=== PATIENT | male | born 1975 | race Caucasian/White ===

== ENCOUNTER 2016-10-14 13:41 | Outpatient (CLI) | payer OTHER | END 2016-10-14 13:42 | disposition critical access hospital (66) | DX: M21.921 Unspecified acquired deformity of right upper arm (principal); M79.602 Pain in left arm; S00.81XA Abrasion of other part of head, initial encounter | CPT/HCPCS: A0425; A0427 ==

== ENCOUNTER 2016-10-14 13:50 | Emergency (ER) | payer OTHER ==
[2016-10-14] MEDS ORDERED: HYDROmorphone 1 MG/ML SYRINGE ONE ×4 (14:00→17:48)
[2016-10-14] MEDS: HYDROmorphone 1 MG/ML SYRINGE IVP STA ×4 (14:03→17:50)
[2016-10-14] MEDS: SODIUM CHLORIDE 0.9% 1,000 ML IV ONE (14:03)
[2016-10-14] MEDS ORDERED: MORPHINE 10 MG/ML VIAL ONE (14:40)
[2016-10-14] MEDS: MORPHINE 2 MG/ML SYRINGE IVP STA (15:00)
[2016-10-14] MEDS ORDERED: PROPOFOL 1000 MG/100 ML 100 ML IV ONE (15:58)
[2016-10-14] MEDS: PROPOFOL 200 MG/20 ML VIAL IVP STA (16:33)
== END 2016-10-14 18:02 | disposition short-term general hospital (02) ==
DX: S12.691A Other nondisplaced fracture of seventh cervical vertebra, initial encounter for closed fracture (principal); S52.121A Displaced fracture of head of right radius, initial encounter for closed fracture; S42.431A Displaced fracture (avulsion) of lateral epicondyle of right humerus, initial encounter for closed fracture; S42.401A Unspecified fracture of lower end of right humerus, initial encounter for closed fracture; S42.402A Unspecified fracture of lower end of left humerus, initial encounter for closed fracture; S09.90XA Unspecified injury of head, initial encounter; S00.81XA Abrasion of other part of head, initial encounter; W13.2XXA Fall from, out of or through roof, initial encounter; Y93.H3 Activity, building and construction; Y92.61 Building [any] under construction as the place of occurrence of the external cause; Y99.8 Other external cause status
CPT/HCPCS: 24600; 36415; 51702; 70450; 71260; 72125; 73060; 73070; 73080; 73090; 74177; 80053; 80320; 83690; 85025; 85610; 86850; 86900; 86901; 94770; 96361; 96374; 96375; 96376; 99284; 99291; J1170

== ENCOUNTER 2016-10-14 17:57 | Outpatient (CLI) | payer OTHER | END 2016-10-14 17:58 | disposition short-term general hospital (02) | DX: S42.402A Unspecified fracture of lower end of left humerus, initial encounter for closed fracture (principal); S53.105A Unspecified dislocation of left ulnohumeral joint, initial encounter; S53.104A Unspecified dislocation of right ulnohumeral joint, initial encounter; S12.630A Unspecified traumatic displaced spondylolisthesis of seventh cervical vertebra, initial encounter for closed fracture | CPT/HCPCS: A0170; A0425; A0426 ==

== ENCOUNTER 2019-03-19 08:00 | Outpatient (CLI) | payer OTHER ==
[2019-03-19 19:05] LABS: BASOPHILS % (AUTO) 0.9 %; EOSINOPHILS # (AUTO) 0.1 10^3/uL (0.0-0.7); EOSINOPHILS % (AUTO) 1.8 %; LYMPHOCYTES # (AUTO) 1.9 10^3/uL (1.5-3.5); LYMPHOCYTES % (AUTO) 41.7 %; MEAN CORPUSCULAR HEMOGLOBIN 29.8 pg (27.0-31.0); MEAN CORPUSCULAR VOLUME 87.5 fL (80.0-94.0); MEAN PLATELET VOLUME 11.5 fL (7.4-11.4); MONOCYTES # (AUTO) 0.5 10^3/uL (0.0-1.0); MONOCYTES % (AUTO) 11.7 %; NEUTROPHILS % (AUTO) 43.7 %; PLT - PLATELET COUNT 189 10^3/uL (130-450); RED BLOOD COUNT 5.37 10^6/uL (4.70-6.10); RED CELL DISTRIBUTION WIDTH 12.5 % (12.0-15.0); WHITE BLOOD COUNT 4.5 x10^3/uL (4.8-10.8)
[2019-03-19 19:37] LABS: ALBUMIN 4.4 g/dL (3.2-5.5); ALBUMIN/GLOBULIN RATIO 1.3 (1.0-2.2); ALKALINE PHOSPHATASE 52 IU/L (42-121); ALT ALANINE AMINOTRANSFERASE 64 IU/L (10-60); AST ASPARTATE AMINOTRANSFERASE 40 IU/L (10-42); BILIRUBIN,TOTAL 1.9 mg/dL (0.2-1.0); BUN - BLOOD UREA NITROGEN 19 mg/dL (6-20); CALCIUM 9.5 mg/dL (8.5-10.3); CARBON DIOXIDE - CO2 22 mmol/L (21-32); CHLORIDE 103 mmol/L (101-111); CHOL/HDL RATIO 6.4 (<5.0); CHOLESTEROL 229 mg/dL; CREATININE 0.9 mg/dL (0.6-1.2); GFR - MDRD 92 (>89); GLUCOSE 97 mg/dL (70-100); HDL CHOLESTEROL 36 mg/dL; LDL CHOLESTEROL,CALCULATED 170 mg/dL; LDL/HDL RATIO 4.7 (<3.6); SODIUM 139 mmol/L (135-145); TOTAL PROTEIN 7.7 g/dL (6.7-8.2); VLDL CHOLESTEROL 23 mg/dL
[2019-03-19 19:47] LABS: THYROID STIMULATING HORMONE 2.14 uIU/mL (0.34-5.60)
[2019-03-19 19:51] LABS: FREE T4 (FREE THYROXINE) 1.03 ng/dL (0.58-1.64)
== END 2019-03-19 23:59 | disposition home or self-care (01) ==
LOC: LAB.N 08:00
PROVIDERS: ATTEND Family Medicine
DX: E78.5 Hyperlipidemia, unspecified (principal)
CPT/HCPCS: 36415; 80050; 80061; 83721; 84439; 84481

== ENCOUNTER 2020-03-19 11:35 | Outpatient (CLI) | payer OTHER ==
--- NOTE | 2020-03-19 13:15 | XRAY Report ---
PROCEDURE: Knee 3 View LT INDICATIONS: LT KNEE EFFUSION TECHNIQUE: 3 views of the left knee(s) were acquired. COMPARISON: None. FINDINGS: Bones: No fractures or dislocations. No suspicious bony lesions. Soft tissues: Mild joint effusion. No suspicious soft tissue calcifications. IMPRESSION: Mild effusion. No visualized acute fracture or dislocation. However, occult injury canno t be excluded. Recommend short interval imaging follow-up in 7-10 days as clinically indicated for ad ditional evaluation. Reviewed by: Yancy Campuzano MD on 03/19/2020 1:14 PM PDT Approved by: Yancy Campuzano MD on 03/19/2020 1:14 PM PDT Station ID: [id number]
== END 2020-03-19 11:36 | disposition home or self-care (01) ==
LOC: DI 11:35
PROVIDERS: ATTEND Family Medicine
DX: M25.462 Effusion, left knee (principal)

== ENCOUNTER 2020-08-10 11:27 | Outpatient (CLI) | payer OTHER ==
--- NOTE | 2020-08-10 10:39 | XRAY Report ---
PROCEDURE: Knee 4 View BILAT INDICATIONS: L KNEE EFFUSION TECHNIQUE: 3 views of the right and left knee(s) were acquired. COMPARISON: 03/19/2020 FINDINGS: No fracture. Scattered subchondral sclerosis and spurring. Bilateral small joint effusions. Incident al 4 mm ossicle projecting adjacent to the inferior pole of the left patella, although the exact loca tion is technically indeterminate. There is spurring at the superior pole of the right patella. IMPRESSION: Minimal degenerative changes. Small bilateral joint effusions. If the patient's pain or other symptoms persist, consider further ev aluation with MRI. Reviewed by: Ananth Louie MD on 08/10/2020 10:38 AM PST Approved by: Ananth Louie MD on 08/10/2020 10:38 AM PST Station ID: [id number]
== END 2020-08-10 23:59 | disposition home or self-care (01) ==
LOC: DI.N 11:27
PROVIDERS: ATTEND Orthopaedic Surgery
DX: M25.462 Effusion, left knee (principal); M25.461 Effusion, right knee

== ENCOUNTER 2021-05-14 08:00 | Outpatient (CLI) | payer OTHER ==
[2021-05-14 18:09] LABS: EOSINOPHILS # (AUTO) 0.1 10^3/uL (0.0-0.7); EOSINOPHILS % (AUTO) 2.1 %; HCT - HEMATOCRIT 46.1 % (42.0-52.0); HGB - HEMOGLOBIN 15.5 g/dL (14.0-18.0); LYMPHOCYTES # (AUTO) 1.5 10^3/uL (1.5-3.5); LYMPHOCYTES % (AUTO) 35.6 %; MEAN CORPUSCULAR HEMOGLOBIN 29.8 pg (27.0-31.0); MEAN CORPUSCULAR HGB CONC 33.6 g/dL (32.0-36.0); MEAN CORPUSCULAR VOLUME 88.5 fL (80.0-94.0); MEAN PLATELET VOLUME 11.7 fL (7.4-11.4); MONOCYTES # (AUTO) 0.3 10^3/uL (0.0-1.0); MONOCYTES % (AUTO) 8.1 %; NEUTROPHILS # (AUTO) 2.2 10^3/uL (1.5-6.6); NEUTROPHILS % (AUTO) 52.7 %; PLT - PLATELET COUNT 192 10^3/uL (130-450); RED BLOOD COUNT 5.21 10^6/uL (4.70-6.10); RED CELL DISTRIBUTION WIDTH 12.1 % (12.0-15.0); WHITE BLOOD COUNT 4.2 x10^3/uL (4.8-10.8)
[2021-05-14 18:53] LABS: THYROID STIMULATING HORMONE 2.51 uIU/mL (0.34-5.60)
[2021-05-14 18:57] LABS: ALBUMIN 4.4 g/dL (3.2-5.5); ALBUMIN/GLOBULIN RATIO 1.5 (1.0-2.2); ALKALINE PHOSPHATASE 63 IU/L (42-121); ALT ALANINE AMINOTRANSFERASE 45 IU/L (10-60); AST ASPARTATE AMINOTRANSFERASE 30 IU/L (10-42); BILIRUBIN,TOTAL 1.1 mg/dL (0.2-1.0); BUN - BLOOD UREA NITROGEN 16 mg/dL (6-20); CALCIUM 9.6 mg/dL (8.5-10.3); CARBON DIOXIDE - CO2 23 mmol/L (21-32); CHLORIDE 104 mmol/L (101-111); CHOL/HDL RATIO 7.1 (<5.0); CHOLESTEROL 270 mg/dL; CREATININE 0.9 mg/dL (0.6-1.2); GFR - MDRD 91 (>89); GLUCOSE 113 mg/dL (70-100); HDL CHOLESTEROL 38 mg/dL; LDL CHOLESTEROL,CALCULATED 212 mg/dL; LDL/HDL RATIO 5.6 (<3.6); POTASSIUM 4.3 mmol/L (3.5-5.0); SODIUM 138 mmol/L (135-145); TOTAL PROTEIN 7.4 g/dL (6.7-8.2); TRIGLYCERIDES 100 mg/dL; VLDL CHOLESTEROL 20 mg/dL
== END 2021-05-14 23:59 | disposition home or self-care (01) ==
LOC: LAB.WCP 08:00
PROVIDERS: ATTEND Family Medicine
DX: M25.462 Effusion, left knee (principal); K21.9 Gastro-esophageal reflux disease without esophagitis; E78.5 Hyperlipidemia, unspecified
CPT/HCPCS: 36415; 80050; 80061; 83721; 84153

== ENCOUNTER 2023-08-16 10:19 | Outpatient (CLI) | payer OTHER ==
--- NOTE | 2023-08-16 13:56 | XRAY Report ---
PROCEDURE: Knee 3V LT INDICATIONS: LEFT KNEE EFFUSION TECHNIQUE: views of the knee(s) were acquired. COMPARISON: X-ray knee 08/10/2020, 03/19/2020 FINDINGS: Bones: No fractures or dislocations. No suspicious bony lesions. Minimal appearance of subchondra l sclerosis and spurring. Patellar ossicle is again noted. Soft tissues: Mild knee joint effusion. No suspicious soft tissue calcifications or masses. IMPRESSION: Mild effusion. Minimal degenerative change. Reviewed by: Yancy Campuzano MD on 08/16/2023 1:55 PM PST Approved by: Yancy Campuzano MD on 08/16/2023 1:55 PM PST Station ID: [id number]
== END 2023-08-16 10:20 | disposition home or self-care (01) ==
LOC: DI 10:19
PROVIDERS: ATTEND Family Medicine
DX: M25.462 Effusion, left knee (principal); M17.12 Unilateral primary osteoarthritis, left knee

== ENCOUNTER 2023-09-27 13:07 | Outpatient (CLI) | payer OTHER ==
[2023-09-27 13:28] LABS: BASOPHILS # (AUTO) 0.1 10^3/uL (0.0-0.1); BASOPHILS % (AUTO) 0.7 %; EOSINOPHILS # (AUTO) 0.1 10^3/uL (0.0-0.7); EOSINOPHILS % (AUTO) 1.7 %; HCT - HEMATOCRIT 44.6 % (42.0-52.0); HGB - HEMOGLOBIN 15.5 g/dL (14.0-18.0); LYMPHOCYTES # (AUTO) 2.8 10^3/uL (1.5-3.5); LYMPHOCYTES % (AUTO) 40.1 %; MEAN CORPUSCULAR HEMOGLOBIN 30.8 pg (27.0-31.0); MEAN CORPUSCULAR HGB CONC 34.8 g/dL (32.0-36.0); MEAN CORPUSCULAR VOLUME 88.7 fL (80.0-94.0); MONOCYTES # (AUTO) 0.5 10^3/uL (0.0-1.0); MONOCYTES % (AUTO) 7.7 %; NEUTROPHILS # (AUTO) 3.5 10^3/uL (1.5-6.6); NEUTROPHILS % (AUTO) 49.5 %; PLT - PLATELET COUNT 202 10^3/uL (130-450); RED BLOOD COUNT 5.03 10^6/uL (4.70-6.10); RED CELL DISTRIBUTION WIDTH 12.4 % (12.0-15.0); WHITE BLOOD COUNT 7.1 x10^3/uL (4.8-10.8)
[2023-09-27 13:57] LABS: ALBUMIN 4.5 g/dL (3.2-5.5); ALBUMIN/GLOBULIN RATIO 1.5 (1.0-2.2); ALKALINE PHOSPHATASE 73 IU/L (42-121); ALT ALANINE AMINOTRANSFERASE 37 IU/L (10-60); AST ASPARTATE AMINOTRANSFERASE 24 IU/L (10-42); BILIRUBIN,TOTAL 1.5 mg/dL (0.2-1.0); BUN - BLOOD UREA NITROGEN 19 mg/dL (6-20); CALCIUM 9.8 mg/dL (8.5-10.3); CARBON DIOXIDE - CO2 28 mmol/L (21-32); CHLORIDE 103 mmol/L (101-111); CHOL/HDL RATIO 5.9 (<5.0); CHOLESTEROL 252 mg/dL; GFR - MDRD 80 (>89); GLUCOSE 100 mg/dL (74-104); HDL CHOLESTEROL 43 mg/dL; LDL CHOLESTEROL,CALCULATED 168 mg/dL; LDL/HDL RATIO 3.9 (<3.6); POTASSIUM 4.2 mmol/L (3.5-4.5); SODIUM 137 mmol/L (135-145); TOTAL PROTEIN 7.5 g/dL (6.4-8.9); TRIGLYCERIDES 203 mg/dL (48-352); VLDL CHOLESTEROL 41 mg/dL
[2023-09-27 14:10] LABS: THYROID STIMULATING HORMONE 1.72 uIU/mL (0.34-5.60)
[2023-09-27 15:00] LABS: ESTIMATED AVERAGE GLUCOSE 114 mg/dL (70-100); HEMOGLOBIN A1c% 5.6 % (4.27-6.07)
== END 2023-09-27 13:08 | disposition home or self-care (01) ==
LOC: LAB 13:07
PROVIDERS: ATTEND Family Medicine
DX: E78.5 Hyperlipidemia, unspecified (principal); E66.9 Obesity, unspecified; M22.2X9 Patellofemoral disorders, unspecified knee; M25.462 Effusion, left knee; G47.00 Insomnia, unspecified; K21.9 Gastro-esophageal reflux disease without esophagitis; R73.9 Hyperglycemia, unspecified; Z12.5 Encounter for screening for malignant neoplasm of prostate
CPT/HCPCS: 36415; 80050; 80061; 83036; 83721; 84153; 84403

== ENCOUNTER 2024-03-28 10:44 | Outpatient (CLI) | payer OTHER | END 2024-03-28 10:45 | disposition home or self-care (01) | LOC: LAB 10:44 | PROVIDERS: ATTEND Family Medicine | DX: E29.1 Testicular hypofunction (principal) | CPT/HCPCS: 36415; 84403 ==